=== PATIENT | male | born 1965 | race Caucasian/White ===

== ENCOUNTER 2021-04-07 06:15 | Day surgery (SDC) | payer OTHER, SELFPAY ==
[2021-04-01 16:10] VITALS: BMI 29.9
--- NOTE | 2021-04-06 10:35 | HO.ANESPROP2 ---
Documented by User: Lorraine Negrete 04/06/21 10:35 HPI - Anesthesia Eval Consult details Narrative: 55yo M for Upper Endoscopy and Colonoscopy FOR[facility] Past Medical History Medical History Barretts esophagus GERD (gastroesophageal reflux disease) HTN (hypertension) Seasonal allergies Surgical History Surgical History History of esophagogastroduodenoscopy (EGD) Hx of colonoscopy Social History Social History Are you DNR?: No Advance Directives: No Advance Directives Information Provided: No Advance Directives on File: No Recently lost weight without trying: No Eating poorly because of decreased appetite: No Nutrition Risks: No Nutritional Risk Meds Allergies Allergy/AdvReac Type Severity Reaction Status Date / Time No Known Allergies Allergy Verified 04/07/21 06:43 Home Medications Medication Instructions Recorded Confirmed Last Taken Type aspirin 81 mg PO DAILY 04/01/21 04/07/21 04/01/21 History esomeprazole magnesium [Nexium] 40 mg PO DAILY 04/01/21 04/01/21 04/07/21 History metoprolol tartrate 1 tab PO DAILY 04/07/21 04/07/21 04/06/21 History Exam Exam Date and Time: April 06, 2021 1035 Height,Weight and Vital Signs: Height 6 ft 2 in Weight 105.687 kg Assessment and Plan Assessment Anesthesia Assessment: Chart Reviewed Documented by User: Coty Montes 04/07/21 08:18 [facility] Past Medical History Medical History Barretts esophagus GERD (gastroesophageal reflux disease) HTN (hypertension) Seasonal allergies Surgical History Surgical History History of esophagogastroduodenoscopy (EGD) Hx of colonoscopy Social History Social History Are you DNR?: No Advance Directives: No Advance Directives Information Provided: No Advance Directives on File: No Recently lost weight without trying: No Eating poorly because of decreased appetite: No Nutrition Risks: No Nutritional Risk Meds Allergies Allergy/AdvReac Type Severity Reaction Status Date / Time No Known Allergies Allergy Verified 04/07/21 06:43 Home Medications Medication Instructions Recorded Confirmed Last Taken Type aspirin 81 mg PO DAILY 04/01/21 04/07/21 04/01/21 History esomeprazole magnesium [Nexium] 40 mg PO DAILY 04/01/21 04/01/21 04/07/21 History metoprolol tartrate 1 tab PO DAILY 04/07/21 04/07/21 04/06/21 History Exam Airway Mallampati Class: II TM Dist: >3cm Neck ROM: Full Loose/Missing/Broken Teeth: No Heart: RRR Lungs: CTA Assessment and Plan Assessment Anesthesia Assessment: Anesthesia Plan Discussed and Chart Reviewed Final Anesthetic Review NPO: Yes ASA Class: II Final Preanesthetic Review: Meds/Allgs Chart Reviewed, Consent Obtained/Reviewed and Anes Risks/Benef Reviewed Patient Risk: Low Procedure Risk: Intermediate Anesthetic Plan Anesthetic Plan: MAC: Disposition: Standard PACU
[2021-04-07 06:42] VITALS: BP 139/89; PULSE 89; RESP 18; TEMP 36.1; O2SAT 98
[2021-04-07] MEDS: Lactated Ringers 1,000 ML 100 ML IVCONT (06:52)
--- NOTE | 2021-04-07 07:26 | PC.NURSE ---
anesthesia aware of patient status yesterday pt also stated was mowing the lawn when it occurred
--- NOTE | 2021-04-07 07:28 | MHC.SHP ---
Pre-Procedural Eval Section B Chief Complaint: barretts,fm hx of polyps Details of Present Illness: see H&P no changes Relevant Family History (Specify if Yes): Yes Relevant Social History: None Present Medications: see Short Stay Collaborative assessment Medical History: No relevant PMH History of Previous Operations: No relevant previous surgery Allergies: Allergies Allergy/AdvReac Type Severity Reaction Status Date / Time No Known Allergies Allergy Verified 04/07/21 06:43 Review of Systems Sugical H&P ROS: Negative: Constitution, Cardiovascular, Respiratory, Neurological, Psychiatric, Hem-Onc, Allergic/Immunologic, Gastrointestinal, Genitourinary, Musculoskeletal, Integumentary, Endocrine and Eyes/Ears/Nose/Throat Exam Surgical H&P Exam: Normal: HEENT, Normal: Heart, Normal: Lungs, Normal: Extremities, Normal: Abdomen, Normal: Skin and Normal: Neurological Plan Diagnosis/Plan: Unchanged I have reviewed the history and physical and performed a pertinent physical examination on my patient. No changes have occurred unless specified.
[2021-04-07 08:13] VITALS: BP 134/83; PULSE 82; RESP 18; TEMP 36.1; O2SAT 100
--- NOTE | 2021-04-07 08:18 | PM.OP ---
Brief Operative Note Date of Service: 04/07/21 Pre-op diagnosis: barretts, screening Post-op diagnosis: same Procedure: egd.colon Surgeon: Mirza Cole Anesthesia: MAC Was an [employer] used for this Procedure?: No Estimated blood loss (mL): 5 Pathology: other (bxs egj) Condition: stable Disposition: PACU
[2021-04-07 08:28] VITALS: BP 132/79; PULSE 77; RESP 16; O2SAT 98
--- NOTE | 2021-04-07 19:46 | OP_ITS ---
SURGEON: Mirza Cole MD INDICATIONS: 1. Vincent's esophagus. 2. Family history of colon polyps, colon cancer screening. PREOPERATIVE DIAGNOSIS: POSTOPERATIVE DIAGNOSIS: PROCEDURE PERFORMED: 1. Upper endoscopy with biopsy. 2. Colonoscopy to the terminal ileum. ESTIMATED BLOOD LOSS: COMPLICATIONS: ANESTHESIA: ASSISTANTS: SPECIMENS: MEDICATIONS: Monitored anesthesia care. DESCRIPTION OF PROCEDURE: History and physical performed. The risks and benefits of the procedure were explained to the patient. Informed consent was obtained. The patient was placed in the left lateral decubitus position. A digital rectal exam was performed prior to the colonoscopy. The Olympus video gastroscope was introduced into the esophagus, stomach, and duodenum. Examination was performed and the scope was removed. He was repositioned for colonoscopy. The Olympus pediatric video colonoscope was introduced into the rectum and advanced to the cecum without difficulty. The cecum was identified by transillumination, palpation, and identification of ileocecal valve. Examination was performed and the scope was removed. He tolerated both procedures well and was taken to recovery area in stable condition. FINDINGS: UPPER ENDOSCOPY: Esophagus: The esophagus was normal. There was a slightly irregular EG junction. This was biopsied. There were no raised lesions or ulcerated areas. Stomach: Stomach showed no evidence of masses, ulcers, or polyps. Duodenum: The bulb and second portion were normal. COLONOSCOPY: The terminal ileum was normal. The visualized colonic mucosa was within normal limits without evidence of masses or ulcers. The quality of the prep was good. No polyps were identified. Retroflexed examination was normal. IMPRESSION: 1. Vincent's esophagus. 2. Normal colonoscopy. RECOMMENDATIONS: 1. Follow up the biopsy results. 2. Repeat colonoscopy should be considered in 5 years because of family history of colon polyps. MD LESLY Bello/GLENNL / [id number]
== END 2021-04-07 09:00 | disposition home or self-care (01) ==
PROVIDERS: PCP Internal Medicine; Visit Provider Internal Medicine Gastroenterology
PROC: (CPT 45378; principal; 2021-04-07 07:30)
DX: Z12.11 Encounter for screening for malignant neoplasm of colon (principal); Z83.71 Family history of colonic polyps; K22.70 Barrett's esophagus without dysplasia; K20.80 Other esophagitis without bleeding; K21.9 Gastro-esophageal reflux disease without esophagitis; I10 Essential (primary) hypertension; Z79.899 Other long term (current) drug therapy
CPT/HCPCS: 45378; 43239; 88305